=== PATIENT | female | born 1975 | race Caucasian/White ===

== ENCOUNTER 2023-11-15 12:51 | Emergency (ER) | payer OTHER ==
[~2023-11-15] VITALS: Ht 165.1 cm; Wt 61.2 kg
[2023-11-15] MEDS ORDERED: ZOLOFT25 MG PO (13:28)
[2023-11-15] MEDS ORDERED: FLONASE16 GM NASAL (16:34)
[2023-11-15] MEDS ORDERED: AMOX-CLAV 875-1 EAC1 PO (16:34)
== END 2023-11-15 16:47 | disposition home or self-care (01) ==
LOC: ER 12:51
DX: J34.89 Other specified disorders of nose and nasal sinuses (principal); Z85.3 Personal history of malignant neoplasm of breast